=== PATIENT | male | born 1990 | race Two or more races ===

== ENCOUNTER 2021-04-28 00:24 | Emergency (ER) | payer MEDICAID ==
[~2021-04-28] VITALS: Ht 177.8 cm; Wt 72.6 kg
[2021-04-28 00:28] VITALS: BP 116/70
[2021-04-28] MEDS ORDERED: FOLIC ACID 1 MG, MULTIPLE VITAMIN 10 ML, MAGNESIUM SULF SDV 50% 8 MEQ, THIAMINE INJ 100... INJ STA ×5 (01:37)
== END 2021-04-28 04:21 | disposition home or self-care (01) ==
LOC: ER 00:24 → EDBD 00:24 → ER 04:21
DX: F10.129 Alcohol abuse with intoxication, unspecified (principal); Y90.9 Presence of alcohol in blood, level not specified
CPT/HCPCS: 99283; J3411; J3475; J7030